=== PATIENT | male | born 1995 | race Caucasian/White ===

== ENCOUNTER 2022-08-08 08:49 | Day surgery (SDC) | payer BC, OTHER ==
[~2022-08-08 08:49] MED LIST: Lactated Ringers 1,000 ML IV SCH
[2022-08-08] MEDS ORDERED: propofoL 50 ML ONE (09:48)
[2022-08-08] MEDS ORDERED: Lidocaine 2% 5 ML SDV ONE (10:07)
[2022-08-08] MEDS ORDERED: fentaNYL 100 MCG/2 ML SDV ONE (10:07)
[2022-08-08] MEDS ORDERED: ePHEDrine 50 MG/ML SDV ONE (10:47)
[2022-08-08] MEDS ORDERED: Propofol 200 MG/20 ML SDV ONE (10:47)
== END 2022-08-08 11:45 | disposition home or self-care (01) ==
LOC: MW.SDS 08:49
PROVIDERS: ATTEND Surgery
DX: K29.50 Unspecified chronic gastritis without bleeding (principal); K25.9 Gastric ulcer, unspecified as acute or chronic, without hemorrhage or perforation; K31.89 Other diseases of stomach and duodenum; R63.4 Abnormal weight loss; F17.210 Nicotine dependence, cigarettes, uncomplicated
CPT/HCPCS: 43239; 45380; J2704; J3010; J7120; 00813; J3490

== ENCOUNTER 2022-09-25 10:52 | Day surgery (SDC) | payer BC, OTHER ==
[~2022-09-25 10:52] MED LIST changes: +Sodium Chloride 0.9% 10 ML Syringe FLUSH PRN; +Sodium Chloride 0.9% 2.5 ML Syringe FLUSH PRN; +Sodium Chloride 0.9% 20 ML SDV IV PRN; +ceFAZolin 2 GM in Sodium Chloride 0.9% 50 ML IV ONE
[2022-09-25] MEDS ORDERED: fentaNYL 100 MCG/2 ML SDV ONE ×2 (10:56→11:06)
[2022-09-25] MEDS ORDERED: Propofol 200 MG/20 ML SDV ONE (10:56)
[2022-09-25] MEDS ORDERED: Famotidine 20 MG/2 ML SDV ONE (11:05)
[2022-09-25] MEDS ORDERED: Ropivacaine 0.5% 5 MG/ML 30 ML SDV ONE (11:05)
[2022-09-25] MEDS ORDERED: fentaNYL 50 MCG/ML SDV IVPUSH PRN (11:17)
[2022-09-25] MEDS ORDERED: Ondansetron 4 MG/2 ML SDV IVPUSH PRN (11:17)
[2022-09-25] MEDS ORDERED: HYDROmorphone 1 MG/ML Syringe IVPUSH PRN (11:17)
[2022-09-25] MEDS ORDERED: Morphine 2 MG/ML SYRINGE IVPUSH PRN (11:17)
[2022-09-25] MEDS ORDERED: Naloxone 0.4 MG/ML SDV IVPUSH PRN (11:17)
[2022-09-25] MEDS ORDERED: Albuterol 0.083% 2.5 MG/3 ML Neb Soln NEB PRN (11:17)
[2022-09-25] MEDS ORDERED: Metoclopramide 10 MG/2 ML SDV IVPUSH PRN (11:17)
[2022-09-25] MEDS ORDERED: droPERidol 5 MG/2 ML SDV IVPUSH PRN (11:17)
[2022-09-25] MEDS ORDERED: Bupivacaine 0.5% 30 ML SDV ONE (12:11)
[2022-09-25] MEDS ORDERED: ceFAZolin 2 GM Vial ONE (13:29)
[2022-09-25] MEDS ORDERED: Ketorolac 30 MG/ML SDV ONE (13:31)
[2022-09-25] MEDS ORDERED: Sugammadex Sodium 200 MG/2 ML VIAL ONE (13:31)
[2022-09-25] MEDS ORDERED: Dexamethasone 4 MG/ML 5 ML MDV ONE (13:31)
[2022-09-25] MEDS ORDERED: Ondansetron 4 MG/2 ML SDV ONE (13:31)
[2022-09-25] MEDS ORDERED: Indocyanine Green 25 MG SDV ONE (13:33)
[2022-09-25] MEDS ORDERED: HYDROmorphone 2 MG/ML Syringe ONE (14:33)
== END 2022-09-25 15:55 | disposition home or self-care (01) ==
LOC: MW.SDS 10:52
PROVIDERS: ATTEND Surgery
DX: K80.10 Calculus of gallbladder with chronic cholecystitis without obstruction (principal); K25.9 Gastric ulcer, unspecified as acute or chronic, without hemorrhage or perforation; Q44.1 Other congenital malformations of gallbladder
CPT/HCPCS: 47562; J0690; J1100; J1170; J1885; J2405; J2704; J2795; J3010; J3490; J7120; 00790; 64488

== ENCOUNTER 2022-11-06 09:49 | Day surgery (SDC) | payer BC, OTHER ==
[~2022-11-06 09:49] MED LIST changes: +Midazolam 1 MG/ML 2 ML SDV ONE; +Propofol 200 MG/20 ML SDV ONE; -ceFAZolin 2 GM in Sodium Chloride 0.9% 50 ML IV ONE
[2022-11-06] MEDS ORDERED: Propofol 200 MG/20 ML SDV ONE (11:10)
== END 2022-11-06 11:57 | disposition home or self-care (01) ==
LOC: MW.SDS 09:49
PROVIDERS: ATTEND Surgery
DX: K29.50 Unspecified chronic gastritis without bleeding (principal); K80.20 Calculus of gallbladder without cholecystitis without obstruction; E66.9 Obesity, unspecified; Z87.19 Personal history of other diseases of the digestive system; Z68.35 Body mass index [BMI] 35.0-35.9, adult
CPT/HCPCS: 43239; J2250; J2704; J7120